=== PATIENT | female | born 1960 | race Asian ===

== ENCOUNTER 2017-12-23 15:54 | Emergency (ER) | payer MEDICARE ==
--- NOTE | 2017-12-24 | Emergency Department Report ---
ED Psych HPI - General Chief Complaint: Psych Stated Complaint: PSYCHOTIC EPISODE Time Seen by Provider: 12/23/17 23:27 Source: patient, EMS Mode of arrival: Ambulatory - History of Present Illness Initial Comments: Patient is 56 years old female history of bipolar disorder. Patient brought to the ER via ambulance after patient's sister: Stated that her sister is in full maría and one her to be assessed. Patient denied any visual or auditory hallucination. No suicidal or homicidal ideation. Patient stated that her sister is a criminal and trying to get into the hospital. She stated that she is not in maría and she normally when she isn't maría. She stated that the last time she was admitted last in October 2012. During my assessment patient does have a pressured speech, flight of ideas and paranoid. Complaint: other - Related Data Allergies Allergy/AdvReac Type Severity Reaction Status Date / Time No Known Allergies Allergy Verified 12/23/17 16:33 ED Review of Systems ROS: Stated complaint: PSYCHOTIC EPISODE Other details as noted in HPI Comment: All other systems reviewed and negative Constitutional: denies: chills, fever Respiratory: denies: cough, orthopnea, shortness of breath, SOB with exertion, SOB at rest, wheezing Cardiovascular: denies: chest pain, palpitations, dyspnea on exertion, edema, syncope, paroxysmal nocturnal dyspnea Gastrointestinal: denies: abdominal pain, nausea, vomiting, diarrhea, constipation, hematemesis, hematochezia Genitourinary: denies: urgency, dysuria, frequency, hematuria, discharge Musculoskeletal: denies: back pain Skin: denies: rash, lesions, change in color, pruritus Neurological: denies: headache, weakness Psychiatric: anxiety. denies: depression, auditory hallucinations, visual hallucinations, homicidal thoughts, suicidal thoughts ED Past Medical Hx - Past Medical History Previous Medical History?: Yes Hx Hypertension: Yes Hx Psychiatric Treatment: Yes (bipolar) - Surgical History Past Surgical History?: No - Social History Smoking Status: Never Smoker Substance Use Type: None ED Physical Exam - General Limitations: No Limitations General appearance: alert, in no apparent distress - Head Head exam: Present: atraumatic, normocephalic, normal inspection - Eye Eye exam: Present: normal appearance - ENT ENT exam: Present: normal exam, normal orophraynx, mucous membranes moist - Neck Neck exam: Present: normal inspection, full ROM. Absent: tenderness, meningismus, lymphadenopathy, thyromegaly - Respiratory Respiratory exam: Present: normal lung sounds bilaterally. Absent: respiratory distress, wheezes, rales, rhonchi, stridor, chest wall tenderness, accessory muscle use, decreased breath sounds, prolonged expiratory - Cardiovascular Cardiovascular Exam: Present: regular rate, normal rhythm, normal heart sounds - GI/Abdominal GI/Abdominal exam: Present: soft, normal bowel sounds. Absent: distended, tenderness, guarding, rebound, rigid, organomegaly, mass, bruit, pulsatile mass , hernia - Extremities Exam Extremities exam: Present: normal inspection, full ROM, normal capillary refill - Back Exam Back exam: Present: normal inspection, full ROM. Absent: CVA tenderness (R), CVA tenderness (L), muscle spasm, paraspinal tenderness, vertebral tenderness, rash noted - Neurological Exam Neurological exam: Present: alert, oriented X3, CN II-XII intact, normal gait, reflexes normal - Skin Skin exam: Present: warm, intact, normal color ED Course Vital Signs 12/23/17 12/23/17 16:23 23:34 Temperature 98.4 F 97.9 F Pulse Rate 112 H 94 H Respiratory 17 18 Rate Blood Pressure 143/97 Blood Pressure 167/86 [Left] O2 Sat by Pulse 99 98 Oximetry ED Medical Decision Making - Lab Data Result diagrams: 12/24/17 00:14 12/24/17 00:14 Critical care attestation.: If time is entered above; I have spent that time in minutes in the direct care of this critically ill patient, excluding procedure time. ED Disposition Clinical Impression: Acute psychosis, Bipolar disorder Disposition: [id number]/TX-65 PSY HOSP/PSY UNIT Is pt being admited?: No Condition: Stable Referrals: PRIMARY CARE, [Primary Care Provider] - 3-5 Days
[2017-12-24 00:24] LABS: Basophils % (Auto) 0.4 % (0.0-1.8); Eosinophils # (Auto) 0.1 K/mm3 (0.0-0.4); Eosinophils % (Auto) 1.5 % (0.0-4.3); Hematocrit 35.2 % (30.3-42.9); Hemoglobin 12.3 gm/dl (10.1-14.3); Lymphocytes # (Auto) 1.9 K/mm3 (1.2-5.4); Lymphocytes % (Auto) 22.2 % (13.4-35.0); Mean Corpuscular HGB Conc 35 % (30-34); Mean Corpuscular Hemoglobin 31 pg (28-32); Mean Corpuscular Volume 88 fl (79-97); Monocytes # (Auto) 0.7 K/mm3 (0.0-0.8); Monocytes % (Auto) 8.3 % (0.0-7.3); Platelet Count 291 K/mm3 (140-440); Red Blood Count 4.01 M/mm3 (3.65-5.03); Red Cell Distribution Width 14.5 % (13.2-15.2)
[2017-12-24 00:43] LABS: Calcium 9.7 mg/dL (8.4-10.2)
[2017-12-24 01:29] LABS: Amphetamine Screen,Urine PRESUMPTIVE NEGATIVE; Benzodiazepines Screen,Urine PRESUMPTIVE NEGATIVE; Cannabinoid Screen,Urine PRESUMPTIVE NEGATIVE; Cocaine Screen,Urine PRESUMPTIVE NEGATIVE; Methadone Screen,Urine PRESUMPTIVE NEGATIVE; Opiate Screen,Urine PRESUMPTIVE NEGATIVE
[2017-12-24 01:30] LABS: Bacteria,Urine 1+ /HPF (Negative)
[2017-12-24 01:33] LABS: Bilirubin,Urine Negative (Negative); Color,Urine Straw (Yellow)
[2017-12-24 01:34] LABS: Blood,Urine Negative (Negative); Urobilinogen,Urine < 2.0 mg/dL (<2.0)
[2017-12-24] MEDS ORDERED: GEODON IM ONE ×2 (02:37→02:46)
[2017-12-24] MEDS ORDERED: HALDOL IM PRN (09:38)
[2017-12-24] MEDS ORDERED: ATIVAN IM PRN (09:38)
--- NOTE | 2017-12-24 11:02 | Consultation ---
History of Present Illness - Reason for Consult Consult date: 12/24/17 Reason for consult: Mental Health Evaluation Requesting physician: EDOUARD COYLE - Chief Complaint Chief complaint: "I am okay" - History of Present Psychiatric Illness 56 years old AA female presenting to the ER for bizarre behavior. Today the patient is uncooperative and tangent during the assessment. She would interject throughout the entire interview. She stated that her sister is a criminal, people are following her, and I didn't give her the correct medication. This is the first time engaging this patient. Also, the patient was grandiose and verbalizing hyper mu-ism content. She had to be redirected several to try to keep her on topic. She would not confirm or deny erratic sleep when asked. This patient is poor historian at this time. She stated that she will only take Geodon. Medications and Allergies Allergies Allergy/AdvReac Type Severity Reaction Status Date / Time No Known Allergies Allergy Verified 12/23/17 16:33 Home Medications Medication Instructions Recorded Confirmed Last Taken Type Amlodipine Besylate [Norvasc] 10 mg PO DAILY 12/24/17 12/24/17 Unknown History Active Meds: Active Medications Haloperidol Lactate (Haldol) 5 mg IM Q6HR PRN PRN Reason: Agitation Lorazepam (Ativan) 2 mg IM Q4HR PRN PRN Reason: Agitation Past psychiatric history - Past Medical History Past Medical History: hypertension Past Surgical History: No surgical history - past Psychiatric treatment and history psychiatric treatment history: Recent a patient at [facility]. She would not confirm or deny a fam psy hx. - Social History Social history: lives with family Mental Status Exam - Vital signs Last Vital Signs Temp 97.9 F 12/23/17 23:34 Pulse 94 H 12/23/17 23:34 Resp 16 12/24/17 10:36 BP 145/98 12/24/17 10:00 Pulse Ox 98 12/24/17 10:36 - Exam Narrative exam: MSE: Appearance: uncooperative Behavior: regular eye contact Speech: pressured speech Mood: agitated, irritable Affect: congruent to mood Thought Process: tangential Thought Content: denies SI/HI's and AVH's, paranoia, delusional, grandiose Motor Activity: ambulatory Cognition: A/O x 3 Insight: poor Judgment: poor Results Result Diagrams: 12/24/17 00:14 12/24/17 00:14 Abnormal lab results 12/24/17 12/24/17 Range/Units 00:14 00:14 MCHC 35 H (30-34) % [place] % (Auto) 8.3 H (0.0-7.3) % BUN 25 H (7-17) mg/dL All other labs normal. Assessment and Plan Assessment and plan: Impression: Bipolar DO with psychosis. Today the patient is uncooperative and tangent during the assessment. DDx: R/O Schizophrenia Recommendation/Plan: Continue 1013 with placement to inpatient psy services. Start Geodon 20 mg PO BID for psychosis/mood. Attempted to discuss possible metabolic side effects of Geodon with patient.
[2017-12-24] MEDS: GEODON PO SCH ×2 (12:00→21:44)
[2017-12-25] MEDS ORDERED: NORVASC PO ONE (10:08)
[2017-12-25] MEDS: GEODON PO SCH ×2 (10:17→22:30)
--- NOTE | 2017-12-25 16:53 | Progress Note ---
Subjective - Reason for Consult Consult date: 12/25/17 Reason for consult: Psychiatric Follow-up Evaluation - Chief Complaint Chief complaint: "Frustrated" Patient is a 56 years old female who presents to the ER for bizarre behavior. Today the patient is uncooperative and tangent during the assessment. She continues to interject throughout the entire interview. She states " when I last took Geodon I took 80mg at night. It works better for me at night and I sleep better." Throughout the assessment patient endorses paranoid and hyper-samaritan thoughts. Patient is easily irritated/agitated. Patient reports that she received 2 injections this morning. Per RN patient is preoccupied with Geodon. Redirection is needed. Mental Status Exam - Vital signs Last Vital Signs Temp 98 F 12/25/17 09:43 Pulse 91 H 12/25/17 10:17 Resp 18 12/25/17 09:43 BP 148/84 12/25/17 12:23 Pulse Ox 100 12/25/17 09:43 - Exam Narrative exam: Mental Status Exam General Appearance: Causally Dressed-hospital gown Eye Contact: Intermittent Orientation: Alert and oriented x 4 (person, place, time, situation) Attitude/Behavior: Cooperative Sensorium: Distracted Psychomotor & Musculoskeletal Activity: Ambulatory Mood: " Frustrated" Affect: Constricted Speech/Language: Regular rate and tone Thought Processes: Circumstantial, tangential Thought Content: Impoverished, paranoid, and ideas of reference ( hyper- samaritan) Perception: Patient denies A/V/T hallucinations. Concentration/Attention: Impaired Suicidal Ideations/Plan: Patient denies. Homicidal Ideations/Plan: Patient denies. Judgment: Poor Insight: Poor Assessment and Plan Impression: Bipolar DO with psychosis. Today the patient is uncooperative and tangent during the assessment. Patient needs redirection. Patient denies SI/HI' s and A/VH's . Patient presents with paranoid and hyper-samaritan thoughts. DDx: R/O Schizophrenia Recommendation/Plan: 1. Continue 1013 with placement to inpatient psychiatric services. 2. Change Geodon 40 mg PO QHS for psychosis/mood. Must be taken with food. Attempted to discuss possible metabolic side effects of Geodon with patient. 3. Will monitor psychosis, mood, sleep, appetite, compliance, and side effects.
--- NOTE | 2017-12-26 11:58 | Progress Note ---
Subjective - Reason for Consult Consult date: 12/26/17 Reason for consult: Psychiatry Follow-up - Chief Complaint Chief complaint: "I finally slept" Patient is a 56 years old female who presents to the ER for bizarre behavior. Today the patient is calm and cooperative during the assessment. The patient is lucid during the interview. She stated that she finally slept last night. She denies SI/HI's and AVH's. She denies any side effects of her medication. Mental Status Exam - Vital signs Last Vital Signs Temp 98.2 F 12/26/17 09:26 Pulse 100 H 12/26/17 09:26 Resp 18 12/26/17 09:26 BP 112/68 12/26/17 09:26 Pulse Ox 97 12/26/17 09:26 - Exam Narrative exam: MSE: Appearance: calm, cooperative Behavior: regular eye contact Speech: regular rate and tone Mood: "fine" Affect: congruent to mood Thought Process: circumstantial Thought Content: denies SI/HI's and AVH's Motor Activity: ambulatory Cognition: A/O x 3 Insight: fair Judgment: fair Assessment and Plan Impression: Bipolar DO with psychosis. Today the patient is calm and cooperative during the assessment. DDx: R/O Schizophrenia Recommendation/Plan: Reevaluate 1013 in 24 hours to determine proper dispo. Continue Geodon 40 mg PO HS psychosis/mood. Discussed possible metabolic side effects of Geodon with patient.
[2017-12-26] MEDS: GEODON PO SCH (22:25)
[2017-12-27] MEDS: NORVASC PO SCH (12:17)
--- NOTE | 2017-12-27 13:01 | Progress Note ---
Subjective - Reason for Consult Consult date: 12/27/17 Reason for consult: Psychiatry Follow-up - Chief Complaint Chief complaint: "I need to sleep more"" Patient is a 56 years old female who presents to the ER for bizarre behavior. Today the patient is cooperative during the assessment. The patient is more disorganized with her thoughts today than yesterday. She had to be redirected several times to keep her on topic. She did acknowledge that she slept "okay" last night. She denies SI/HI's and AVH's. She denies SI/HI's and AVH's. She denies any side effects of her medication. Mental Status Exam - Vital signs Last Vital Signs Temp 97.8 F 12/26/17 22:00 Pulse 80 12/27/17 12:17 Resp 18 12/26/17 22:00 BP 192/88 12/27/17 12:17 Pulse Ox 100 12/26/17 22:00 - Exam Narrative exam: MSE: Appearance: cooperative Behavior: regular eye contact Speech: hyper verbal Mood: "fine" Affect: congruent to mood Thought Process: tangential, disorganized Thought Content: denies SI/HI's and AVH's Motor Activity: ambulatory Cognition: A/O x 3 Insight: variable Judgment: variable Assessment and Plan Impression: Bipolar DO with psychosis. Today the patient is cooperative, but tangent during the assessment. DDx: R/O Schizophrenia Recommendation/Plan: Continue 1013 with placement to inpatient psy services. Increase Geodon to 60 mg PO HS for psychosis/mood. Discussed possible metabolic side effects of Geodon with patient.
[2017-12-27] MEDS: GEODON PO SCH (22:25)
[2017-12-28] MEDS: NORVASC PO SCH (10:24)
--- NOTE | 2017-12-28 19:52 | Progress Note ---
Subjective - Reason for Consult Consult date: 12/28/17 Reason for consult: Psychiatric Follow-up Evaluation - Chief Complaint Chief complaint: "Thankful" Patient is a 56 years old female who presents to the ER for bizarre behavior. Today the patient is cooperative during the assessment. The patient is less tangential with her thoughts today. She states, " [birth year] my [birth year]. 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 I spoke with him today and I really miss him. My sleep and appetite are pretty good." She denies SI/HI's, AVH's, and delusions. Patient reports medication compliance. She denies any side effects of her medication. Mental Status Exam - Vital signs Last Vital Signs Temp 97.1 F L 12/27/17 20:49 Pulse 75 12/28/17 10:24 Resp 16 12/27/17 20:09 BP 130/75 12/28/17 10:24 Pulse Ox 99 12/27/17 20:09 - Exam Narrative exam: Mental Status Exam General Appearance: Causally Dressed-hospital gown Eye Contact: Intermittent Orientation: Alert and oriented x 4 (person, place, time, situation) Attitude/Behavior: Cooperative Sensorium: Distracted Psychomotor & Musculoskeletal Activity: Ambulatory Mood: " Thankful" Affect: Constricted Speech/Language: Regular rate and tone Thought Processes: Circumstantial, tangential-less Thought Content: Impoverished. Patient denies delusions. Perception: Patient denies A/V/T hallucinations. Concentration/Attention: Impaired Suicidal Ideations/Plan: Patient denies. " No ma'am" Homicidal Ideations/Plan: Patient denies. " No ma'am" Judgment: Poor Insight: Poor Assessment and Plan Impression: Bipolar DO with psychosis. Today the patient is cooperative, but tangent during the assessment. She denies SI/HI, A/VH, and delusions. DDx: R/O Schizophrenia Recommendation/Plan: 1. Continue 1013 with placement to inpatient psychiatric services. 2. Continue Geodon to 60 mg PO HS for psychosis/mood. Discussed possible metabolic side effects of Geodon with patient. 3. Will continue to monitor mood, psychosis, sleep, appetite, compliance, and side effects.
[2017-12-28] MEDS: GEODON PO SCH (22:30)
[2017-12-29] MEDS: NORVASC PO SCH (09:57)
--- NOTE | 2017-12-29 16:22 | Progress Note ---
Subjective - Reason for Consult Consult date: 12/29/17 Reason for consult: follow up - Chief Complaint Chief complaint: "I'm thankful." Patient is a 57 years old female who presents to the ER for bizarre behavior. She is guarded and tangential. She talked about how she has been on multiple medications over the years, including Depakote, lithium, Stelazine, and Risperdal. She states geodon has worked the best and works well at 80mg qhs. She talked about how she did not sleep well because a peer was having a difficult time. She talked about how she has been in and out of the hospital since 2012. She was initially guarded, then cooperative, and she quickly began expressing paranoid ideation. Mental Status Exam - Vital signs Last Vital Signs Temp 97.4 F L 12/29/17 09:23 Pulse 94 H 12/29/17 09:57 Resp 18 12/29/17 09:23 BP 139/75 12/29/17 09:57 Pulse Ox 99 12/29/17 09:23 - Exam Orientation: time, place, person Affect: other (labile) Mood: congruent with affect Thought content: paranoia Thought Process: Circumstantial, Tangential Perceptions: other (would not discuss) Speech: normal rate and pattern Concentration: focused Motor activity: normal Level of consciousness: alert Memory: Intact Sleep Symptoms: Difficulty Falling Asleep Interaction: irritable, guarded Assessment and Plan Impression: Bipolar DO with psychosis. She remains paranoid. DDx: R/O Schizophrenia Recommendation/Plan: Continue 1013 with placement to inpatient psychiatric services. Increase geodon to 80 mg PO HS for psychosis/mood. She voiced awareness of the side effects of geodon.
[2017-12-30] MEDS: GEODON PO SCH ×2 (00:10→22:18)
[2017-12-30] MEDS: NORVASC PO SCH (11:10)
--- NOTE | 2017-12-30 11:39 | Progress Note ---
Subjective - Reason for Consult Consult date: 12/30/17 Reason for consult: Psychiatry Follow-up - Chief Complaint Chief complaint: "Hello to you" Patient is a 57 years old female who presents to the ER for bizarre behavior. Today the patient is cooperative, but tangent during the assessment. She stated that she has a psychiatrist, but quickly started expressing paranoia about some network security analyst. She had to be redirected several times to keep her on topic. She denies SI/HI's and AVH's. She denies any side effects of her medication. Mental Status Exam - Vital signs Last Vital Signs Temp 98.6 F 12/29/17 21:11 Pulse 88 12/30/17 11:10 Resp 16 12/30/17 09:46 BP 136/64 12/30/17 11:10 Pulse Ox 100 12/30/17 09:46 - Exam Narrative exam: MSE: Appearance: cooperative Behavior: regular eye contact Speech: hyper verbal Mood: "fine" Affect: congruent to mood Thought Process: tangential Thought Content: denies SI/HI's and AVH's, paranoia Motor Activity: ambulatory Cognition: A/O x 3 Insight: variable Judgment: variable Assessment and Plan Impression: Bipolar DO with psychosis. Today the patient is cooperative, but tangent during the assessment. DDx: R/O Schizophrenia Recommendation/Plan: Continue 1013 with placement to inpatient psy services. Continue Geodon 80 mg PO HS for psychosis/mood. Discussed possible metabolic side effects of Geodon with patient.
--- NOTE | 2017-12-31 16:04 | Progress Note ---
Subjective - Reason for Consult Consult date: 12/31/17 Reason for consult: Psychiatry Follow-up - Chief Complaint Chief complaint: "I feel much better" Patient is a 57 years old female who presents to the ER for bizarre behavior. Today the patient is calm and cooperative during the assessment. She stated that she can follow up with [facility] ([facility]) for outpatient psy services. She denies SI/HI's and AVH's. She denies being fearful of anything or anyone when asked. She denies any side effects of her medication. Mental Status Exam - Vital signs Last Vital Signs Temp 98.1 F 12/31/17 12:53 Pulse 84 12/31/17 12:53 Resp 18 12/31/17 12:53 BP 126/63 12/31/17 12:53 Pulse Ox 100 12/31/17 12:53 - Exam Narrative exam: MSE: Appearance: calm, cooperative Behavior: regular eye contact Speech: regular rate and tone Mood: "okay" Affect: congruent to mood Thought Process: logical Thought Content: denies SI/HI's and AVH' Motor Activity: ambulatory Cognition: A/O x 3 Insight: fair Judgment: fair Assessment and Plan Impression: Bipolar DO with psychosis. Today the patient is calm and cooperative during the assessment. Psychosis has resolved. DDx: R/O Schizophrenia Recommendation/Plan: Rescind 1013. Continue Geodon 80 mg PO HS for psychosis/ mood. The patient can follow up at [facility] or [facility] ( [facility]) for outpatient psy services. Discussed possible metabolic side effects of Geodon with patient. Case Mgmt involvement, the patient my need assistance with placement.
--- NOTE | 2017-12-31 16:42 | Emergency Department Report ---
Blank Doc - Documentation Documentation: I spoke with our psychiatric team operations manager. The 1013 was rescinded by our wan support specialist. I reviewed the documentation. Patient does appear appropriate for discharge. She does not appear to be a harm to herself or others. She will continue her home medication regimen. She was given outpatient resources by our psychiatric team.
[2017-12-31 20:59] VITALS: BP 168/79
--- NOTE | 2018-01-01 14:23 | Progress Note ---
Subjective - Reason for Consult Consult date: 01/01/18 Reason for consult: Psychiaric Follow-up Evaluation - Chief Complaint Chief complaint: " Patient is a 57 years old female who presents to the ER for bizarre behavior. Today the patient is calm and cooperative during the assessment. She stated that she can follow up with [facility] ([facility]) for outpatient psy services. She denies SI/HI's and AVH's. She denies being fearful of anything or anyone when asked. She denies any side effects of her medication. Mental Status Exam - Vital signs Last Vital Signs Temp 97.9 F 12/31/17 19:45 Pulse 85 12/31/17 19:45 Resp 18 12/31/17 19:45 BP 168/79 12/31/17 19:45 Pulse Ox 99 12/31/17 19:45 - Exam Narrative exam: Mental Status Exam General Appearance: Causally Dressed-hospital gown, dishelved, in restraints Eye Contact: Poor Orientation: Alert and oriented to person. Unable to assess orientation. Attitude/Behavior: Uncooperative, agitated Sensorium: Distracted Psychomotor & Musculoskeletal Activity: Laying in bed Mood: "Awful." Labile, anxious, agitated Affect: Incongruent Speech/Language: Loud Thought Processes: Disorganized Thought Content: Impoverished Perception: + Auditory hallucinations, responding to internal stimuli (laughing/ talking inapp.) Concentration/Attention: Impaired Suicidal Ideations/Plan: Patient denies. Homicidal Ideations/Plan: Patient denies. Judgment: Poor Insight: Poor Assessment and Plan Impression: Bipolar DO with psychosis. Today the patient is calm and cooperative during the assessment. Psychosis has resolved. DDx: R/O Schizophrenia Recommendation/Plan: Rescind 1013. Continue Geodon 80 mg PO HS for psychosis/ mood. The patient can follow up at [facility] or [facility] ( [facility]) for outpatient psy services. Discussed possible metabolic side effects of Geodon with patient. Case Mgmt involvement, the patient my need assistance with placement.
== END 2017-12-31 22:05 | disposition home or self-care (01) ==
LOC: EEVIPCON 15:54 → ED 15:54
DX: F31.9 Bipolar disorder, unspecified (principal); F23 Brief psychotic disorder; I10 Essential (primary) hypertension
CPT/HCPCS: 36415; 80053; 80307; 81001; 85025; 96372; 99284; G0480; J1630; J2060; J3486; 80320